=== PATIENT | male | born 1980 | race Caucasian/White ===

== ENCOUNTER 2020-12-17 20:43 | Emergency (ER) | payer BC, SELFPAY ==
[2020-12-17 21:21] VITALS: BP 132/90; PULSE 65; RESP 20; TEMP 36.7; O2SAT 97
--- NOTE | 2020-12-17 23:01 | ED.GENADULT ---
HPI - General Adult General Chief complaint: Skin/Abscess/Foreign Body Stated complaint: fish hook stuck in finger Time Seen by Provider: 12/17/20 22:50 Source: patient History of Present Illness HPI narrative: Patient is a 40 y/o male complaining of fish hook stuck in his right index finger. He states that this happened about 2 hours ago. He has only minimal pain. He denies other injuries. He is not sure when his last Tetanus shot was. Related Data Allergies Allergy/AdvReac Type Severity Reaction Status Date / Time erythromycin base Allergy Intermediate Itching Verified 12/17/20 21:25 Review of Systems Constitutional: Constitutional: Denies chills, Denies fever(s), Denies headache(s) and Denies weakness Eyes: Eyes: Denies blurry vision ENT: Denies headache(s) and Denies neck pain Cardiovascular: Cardiovascular: Denies chest pain and Denies dyspnea Respiratory: Respiratory: Denies cough and Denies dyspnea Gastrointestinal: Gastrointestinal: Denies abdominal pain, Denies diarrhea, Denies nausea and Denies vomiting Genitourinary: Genitourinary: Denies hematuria and Denies dysuria Musculoskeletal: Musculoskeletal: Denies back pain and Denies neck pain Integumentary/Breasts: Skin/Breast: Reports as per HPI and Reports other (fish hook stuck in right index finger) Neurologic: Denies headache(s) and Denies weakness Exam Const: General: no acute distress and well developed Orientation/consciousness: oriented to person, oriented to place, oriented to time and patient oriented x3 Eyes: General: appearance normal, both eyes and all related structures Conjunctivae: conjunctivae normal Skin: General skin exam: normal color and turgor normal Neuro: General: oriented to person, oriented to place, oriented to time and patient oriented x3 Cognition (Neuro): normal cognition Extrem: General: normal to inspection, full ROM and no pedal edema Right upper extremity: Extremity exam: right hand puncture wound (with fishhook stuck in right index finger) Psych: Appearance: grossly normal Mental Status: mental status grossly normal Affect: normal affect Course Vital Signs Vital signs: Vital Signs Temperature 36.7 C 12/17/20 21:21 Pulse Rate 65 12/17/20 21:21 Respiratory Rate 20 12/17/20 21:21 Blood Pressure 132/90 12/17/20 21:21 Pulse Oximetry 97 12/17/20 21:21 Temperature 36.7 C 12/17/20 21:21 Pulse Rate 65 12/17/20 21:21 Respiratory Rate 20 12/17/20 21:21 Blood Pressure 132/90 12/17/20 21:21 Pulse Oximetry 97 12/17/20 21:21 Procedures Foreign Body Removal Foreign Body #1: Foreign Body Removal Date: 12/17/20 Foreign Body Removal Time: 23:38 Time Out Performed: yes Site: right and hand (index finger) Description of foreign body: fish hook Sedation/Analgesia: none and other (digital block with 1% lidocaine is administered prior to removal of fish hook) Technique: incision made to facilitate removal Confirmed by:: direct visualization Complications: none Post-procedure exam: awake, alert Foreign Body Removal Narrative: Skin incision is made with 18 G needle for fish hook removal Medical Decision Making Vital Signs Vital Signs: Vital Signs Temperature 36.7 C 12/17/20 21:21 Pulse Rate 65 12/17/20 21:21 Respiratory Rate 20 12/17/20 21:21 Blood Pressure 132/90 12/17/20 21:21 Pulse Oximetry 97 12/17/20 21:21 Temperature 36.7 C 12/17/20 21:21 Pulse Rate 65 12/17/20 21:21 Respiratory Rate 20 12/17/20 21:21 Blood Pressure 132/90 12/17/20 21:21 Pulse Oximetry 97 12/17/20 21:21 Discharge Plan Discharge Clinical Impression: Puncture wound Fish hook injury of finger of right hand Qualifiers: Encounter type: initial encounter Qualified Code(s): S69.91XA - Unspecified injury of right wrist, hand and finger(s), initial encounter Patient Disposition: Home, Self-Care Condition:
[2020-12-17] MEDS: TETANUS,DIPHTHERIA,AC PERTUSSIS ADULT (0.5 ML) BOOSTRIX IM (23:07)
== END 2020-12-17 23:58 | disposition home or self-care (01) ==
PROVIDERS: Emergency Provider Emergency Medicine; PCP Family Medicine
DX: S61.221A Laceration with foreign body of left index finger without damage to nail, initial encounter (principal); Z23 Encounter for immunization; W45.8XXA Other foreign body or object entering through skin, initial encounter
CPT/HCPCS: 10120; 90471; 90715; 99283

== ENCOUNTER 2021-04-08 07:47 | Outpatient (CLI) | payer BC, SELFPAY ==
--- NOTE | 2021-04-18 13:13 | WPDHOMESLEEP ---
Sleep Study - Home Unattended Date of Study: 04/08/21 <Aria Bay DO - Last Filed: 04/18/21 13:39> Ordering Provider: Oniel Beavers MD <Aria Bay DO - Last Filed: 04/18/21 13:39> Interpreting Provider: Aria Bay DO <Aria Bay DO - Last Filed: 04/18/21 13:39> Home Sleep Study Type: Apnea Link Air <Aria Bay DO - Last Filed: 04/18/21 13:39> Height: 1.75 m <Aria Bay DO - Last Filed: 04/18/21 13:39> Weight: 104.326 kg <Aria Bay DO - Last Filed: 04/18/21 13:39> Body Mass Index: 34.0 <Aria Bay DO - Last Filed: 04/18/21 13:39> Neck Circumference (inches): 16.5 <Aria Bay DO - Last Filed: 04/18/21 13:39> [place]: 9 <Aria Bay DO - Last Filed: 04/18/21 13:39> Reason for Sleep Study Hypersomnia <Aria Bay DO - Last Filed: 04/18/21 13:39> Sleep History The patient is a 40-year-old male with psoriasis, seasonal allergies and obesity that had a home sleep test ordered by his primary care doc for hypersomnia. The patient currently works at [employer]. the patient's states that he snores almost every night for greater than 2 years. The patient denies awakening from sleep short of breath. He denies awakening at night with heartburn, belching or cough. He constantly snores loud enough that others complain. He denies having trouble sleeping when he has a cold. He denies suddenly waking up gasping for air throughout the night. He denies having breathing problems at night observed by others. He denies having heart palpitations throughout the night. He rarely falls asleep during the day and never while driving. He denies sleep paralysis and cataplexy. He rarely experiences vivid dreamlike scenes upon awakening or falling asleep. He denies having nightmares. He never feels sad or depressed. He is rarely anxious. He rarely notices parts of his body jerk. He denies kicking throughout the night. He denies experiencing crawling and aching feelings in his legs as well as leg pain throughout the night. He denies grinding his teeth during sleep and awakening with jaw pain. He denies being bothered by pain during the day and being awakened by pain during the night. He goes to bed at 10:00 p.m. on weekdays and 11:00 p.m. on the weekends. It does not take him long to fall asleep. He wakes up 1-2 times per night. When he wakes up, he will change the baby, urinate, get a drink for himself and make a bottle for the baby. He is able to fall back asleep immediately. He wakes up at 4:00 a.m. on the weekdays and 7:00 a.m. on the weekends. He gets 6 hours of sleep per night. He will stay in bed for 30 minutes after awakening. He currently lives with his and children. He does not consume any caffeinated beverages within 2 hours of going to bed. He does not engage in physical exercise before bedtime. He will watch television before falling asleep. He will rarely take naps but if he does they are not refreshing. He drinks 2 caffeinated beverages per day. He drinks 2 alcoholic beverages per day. He denies tobacco and recreational drug use. <Aria Bay DO - Last Filed: 04/18/21 13:39> [facility] Past Medical History Medical History: Medical History BMI 33.0-33.9,adult Encounter for prostate cancer screening Encounter for wellness examination in adult Hypersomnia Psoriasis Seasonal allergic rhinitis <Aria Bay DO - Last Filed: 04/18/21 13:39> Family History Family History: Family History Father Heart disease Grandparent Cancer Heart disease Grandparent Cancer Heart disease <Aria Bay, DO - Last Filed: 04/18/21 13:39> Social History Social History: Social History (Reviewed 04/18/21 @ 13:18
[2021-04-18 13:21] VITALS: BMI 34.0
== END 2021-04-09 10:34 | disposition home or self-care (01) ==
LOC: ANHCSM 07:50
PROVIDERS: PCP Family Medicine; Visit Provider Family Medicine
DX: G47.10 Hypersomnia, unspecified (principal); G47.33 Obstructive sleep apnea (adult) (pediatric)
CPT/HCPCS: 95806

== ENCOUNTER 2023-03-09 08:01 | Outpatient (CLI) | payer BC, SELFPAY ==
--- NOTE | ~2023-03-09 | US_ITS ---
EXAMINATION: US aorta [facility] DATE: 03/09/2023 08:41 INDICATION: Abdominal aortic aneurysm screening TECHNIQUE: Grayscale, color Doppler, and pulsed Doppler images of the aorta and common iliac arteries were obtained. COMPARISON: None. FINDINGS: The proximal aorta measures 2.5 cm. The mid aorta measures 2.4 cm. The distal aorta measures 1.6 cm. The right common iliac artery measures 1.2 cm. The left common iliac artery measures 1.2 cm. IMPRESSION: 1. Normal caliber abdominal aorta. Reviewed, dictated and finalized at location A.
== END 2023-03-09 08:02 | disposition home or self-care (01) ==
PROVIDERS: PCP Family Medicine; Visit Provider Family Medicine
DX: Z13.6 Encounter for screening for cardiovascular disorders (principal); Z82.49 Family history of ischemic heart disease and other diseases of the circulatory system
CPT/HCPCS: 76706

== ENCOUNTER 2024-12-27 10:35 | Outpatient (CLI) | payer BC, SELFPAY ==
--- NOTE | 2024-12-27 10:37 | EST_ITS ---
Patient Info Name: Patel Brooks Age: 44 years : 1980 Gender: Male Ht: 69 in Wt: 230 lbs BSA: 2.29 m2 HR: 70 bpm BP: 117 / 77 mmHg Exam Date: 12/27/2024 10:37 AM Patient Status: O Admit Date: 12/27/2024 Exam Type: CA stress test treadmill A treadmill exercise stress test was performed. Staff Referring Physician: Danay Norman Attending Provider: Danay Norman Exercise Technologist: Rosario Mendes Exercise Physician: Chad Zapata DO Summary 1. 1. Negative Frandy exercise stress test for ischemic ST changes by ECG criteria. 2. 2. Good functional capacity, achieving 12 METs of workload. 3. 3. Appropriate HR response to exercise. 4. 4. Appropriate HR recovery at 1 minute post exercise. 5. 5. No imaging with stress testing. 6. 6. Patient informed of the above results. Protocol: Frandy Stress ECG Details Stage: REST Duration (min): 0 min : 50 sec Speed (mph): 0.0 Grade (%): 0 HR (bpm): 70 SBP (mmHg): 117 DBP (mmHg): 77 METS: --- Stage: REST Duration (min): 7 min : 6 sec Speed (mph): 0.0 Grade (%): 0 HR (bpm): 76 SBP (mmHg): 117 DBP (mmHg): 77 METS: --- Stage: STAGE 1 Duration (min): 1 min : 0 sec Speed (mph): 1.7 Grade (%): 10 HR (bpm): 108 SBP (mmHg): 117 DBP (mmHg): 77 METS: --- Stage: STAGE 1 Duration (min): 2 min : 0 sec Speed (mph): 1.7 Grade (%): 10 HR (bpm): 112 SBP (mmHg): 117 DBP (mmHg): 77 METS: --- Stage: STAGE 1 Duration (min): 3 min : 0 sec Speed (mph): 1.7 Grade (%): 10 HR (bpm): 113 SBP (mmHg): 150 DBP (mmHg): 82 METS: --- Stage: STAGE 2 Duration (min): 1 min : 0 sec Speed (mph): 2.5 Grade (%): 12 HR (bpm): 120 SBP (mmHg): 150 DBP (mmHg): 82 METS: --- Stage: STAGE 2 Duration (min): 2 min : 0 sec Speed (mph): 2.5 Grade (%): 12 HR (bpm): 126 SBP (mmHg): 158 DBP (mmHg): 81 METS: --- Stage: STAGE 2 Duration (min): 3 min : 0 sec Speed (mph): 2.5 Grade (%): 12 HR (bpm): 126 SBP (mmHg): 158 DBP (mmHg): 81 METS: --- Stage: STAGE 3 Duration (min): 1 min : 0 sec Speed (mph): 3.4 Grade (%): 14 HR (bpm): 136 SBP (mmHg): 190 DBP (mmHg): 80 METS: --- Stage: STAGE 3 Duration (min): 2 min : 0 sec Speed (mph): 3.4 Grade (%): 14 HR (bpm): 140 SBP (mmHg): 190 DBP (mmHg): 80 METS: --- Stage: STAGE 3 Duration (min): 3 min : 0 sec Speed (mph): 3.4 Grade (%): 14 HR (bpm): 144 SBP (mmHg): 178 DBP (mmHg): 87 METS: --- Stage: STAGE 4 Duration (min): 1 min : 0 sec Speed (mph): 4.2 Grade (%): 16 HR (bpm): 156 SBP (mmHg): 178 DBP (mmHg): 87 METS: --- Stage: STAGE 4 Duration (min): 1 min : 0 sec Speed (mph): 4.2 Grade (%): 16 HR (bpm): 156 SBP (mmHg): 178 DBP (mmHg): 87 METS: --- Stage: RECOVERY Duration (min): 0 min : 59 sec Speed (mph): 0.0 Grade (%): 0 HR (bpm): 131 SBP (mmHg): 155 DBP (mmHg): 67 METS: --- Stage: RECOVERY Duration (min): 1 min : 59 sec Speed (mph): 0.0 Grade (%): 0 HR (bpm): 115 SBP (mmHg): 155 DBP (mmHg): 67 METS: --- Stage: RECOVERY Duration (min): 2 min : 59 sec Speed (mph): 0.0 Grade (%): 0 HR (bpm): 111 SBP (mmHg): 162 DBP (mmHg): 77 METS: --- Stage: RECOVERY Duration (min): 3 min : 59 sec Speed (mph): 0.0 Grade (%): 0 HR (bpm): 106 SBP (mmHg): 162 DBP (mmHg): 77 METS: --- Stage: RECOVERY Duration (min): 4 min : 59 sec Speed (mph): 0.0 Grade (%): 0 HR (bpm): 105 SBP (mmHg): 136 DBP (mmHg): 78 METS: --- Stage: RECOVERY Duration (min): 5 min : 59 sec Speed (mph): 0.0 Grade (%): 0 HR (bpm): 106 SBP (mmHg): 136 DBP (mmHg): 78 METS: --- Stage: RECOVERY Duration (min): 6 min : 59 sec Speed (mph): 0.0 Grade (%): 0 HR (bpm): 100 SBP (mmHg): 130 DBP (mmHg): 82 METS: --- Stage: RECOVERY Duration (min): 7 min : 7 sec Speed (mph): 0.0 Grade (%): 0 HR (bpm): 100 SBP (mmHg): 130 DBP (mmHg): 82 METS: --- Rest HR: 76 bpm Peak HR: 158 bpm Rest Sys BP: 117 mmHg Peak Sys BP: 190 mmHg Max Pred HR: 176 bpm % Max Pred HR: 90 % Target HR: 150 bpm Max RPP: 30,020 bpm*mmHg Alarcon Score: 4 Termination Reason: Reached target heart rate or workload Cardiac Symptoms: Shortness of breath Max ST Seg Deviation: 1.20 mm Total Time: 10 min : 0 sec Rest Guajardo BP: 77 mmHg Peak Guajardo BP: 80 mmHg Angina Score: None Total METS: 12.1 Resting ECG Sinus rhythm. Stress ECG No ST changes. Arrhythmias None. Report Signatures
--- OUTSIDE RECORDS SUMMARY | 2024-12-27 10:42 | XMS_ITS | Clinical Summary ---
Author Organization [facility] [address] Address [address] [place] [address] Care Team Providers Care Jig Hand Name Role Phone Oniel Beavers MD Primary Care Provider [phone] [phone] Allergies Active Allergy Reactions Criticality Noted Date Comments Erythromycin Hives Medium 05/16/2023 Medications methylPREDNISolon e (Medrol, Bowen,) 4 mg DosepackIndicatio ns:Dermatitis follow package directions 1 packet 3 Active triamcinolone (KENALOG) 0.1 % creamIndications: Skin Inflammation Apply topically 2 (two) times a day Not to face or genitals 30 g 3 Active Active Problems No known active problems Encounters Date Type Department Care Team Description 12/05/2024 12:38 AM CDT - 12/05/2024 3:57 AM CDT Emergency [facility] Emergency Department [address] [place] [address] Carmencita Trevizo MD Chest pain, unspecified type (Primary Dx) Discharge Disposition: Discharge to home or self care 12/04/2024 11:41 PM CDT - 12/04/2024 11:46 PM CDT Emergency [facility] Emergency Department [address] [place] [address] Discharge Disposition: Left without being seen from Last 3 Months Social History Tobacco Use Types Packs/Day Years Used Date Smoking Tobacco: Never Smokeless Tobacco: Never Tobacco Cessation:Counseling Given: Not Answered Alcohol Use Standard Drinks/Week Comments Yes 0 (1 standard drink = 0.6 oz pur e alcohol) on weekends Personal Safety Answer Date Recorded Have you ever been in or are you currently in a harmful physical or emotional relationship or is someone making you feel afraid or unsafe? 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 Gender Identity Not on file Sexual Orientation Not on file Obstetrics History Last Filed Vital Signs Vital Sign Reading Time Taken Comments Blood Pressure 143/95 12/04/2024 10:37 PM CDT Pulse 58 12/04/2024 10:37 PM CDT Temperature 37.1 C (98.8 F) 12/04/2024 7:39 PM CDT Respiratory Rate 17 12/04/2024 10:37 PM CDT Oxygen Saturation 96% 12/04/2024 10:37 PM CDT Inhaled Oxygen Concentration - - Weight 104.3 kg (230 lb) 12/04/2024 7:39 PM CDT Height 175.3 cm (5' 9) 12/04/2024 7:39 PM CDT Body Mass Index 33.97 12/04/2024 7:39 PM CDT Plan of Treatment Health Maintenance Due Date Last Done Comments Depression Screening 1980 Hepatitis C Screening 1980 Varicella Vaccines (1 of 2 - 13+ 2-dose series) 1993 Hepatitis B Screening 1998 Regular Well Visit/Exam 18-64 1998 Covid-19 Vaccine (3 - 2023-2 5 season) 2024 04/26/2021, 04/05/2021 Influenza Vaccine (Season Ended) 2025 DTaP/Tdap/Td Vaccine (2 - Td or Tdap) 12/17/2030 12/17/2020, 01/08/1995 HPV Vaccines Aged Out No longer eligi ble based on patient's age to complete this topic Pneumococcal vaccine <65 Aged Out No longer eligible based on patient's age to complete this topic Procedures Procedure Name Priority Date/Time Associated Diagnosis Comments XR CHEST PA LATERAL 2 VIEWS ED 12/05/2024 1:46 AM CDT EGFR STAT 12/05/2024 1:30 AM CDT DIFFERENTIAL AUTO STAT 12/05/2024 1:3 0 AM CDT D-DIMER, QUANTITATIVE STAT 12/05/2024 1:30 AM CDT TROPONIN I HIGH-SENSITIVITY SERIES (BASELINE, 2HR, 4HR, 6HR) STAT 12/05/2024 1:30 AM CDT COMPREHENSIVE METABOLIC PANEL STAT 12/05/2024 1:30 AM CDT CBC WITH AUTO DIFFERENTIAL STAT 12/05/2024 1:30 AM CDT ECG 12-LEAD Routine 12/04/2024 8:45 PM CDT XR SHOULDER LEFT 2 OR MORE VIEWS ED 12/04/2024 4:54 PM CDT ECG 12-LEAD STAT 12/04/2024 4:07 PM CDT from Last 3 Months Results * XR Chest Pa Lateral 2 Vw (12/05/2024 1:46 AM CDT) Anatomical Region Laterality Modality Body, Chest N/A Computed Radiogr aphy 12/05/2024 3:08 AM CDT Impressions 12/05/2024 9:55 AM CDT No priors available for comparison. Small lung volumes with mild bibasilar atelectasis. Right lateral pleural thickening. No pleural effusion or pneumothorax. Cardiomediastinal silhouette is normal. Dictated by: Aron Harley MD The radiology attending physician has personally reviewed this study, and had reviewed and/or edited this written report and agrees with it. Electronically signed by: Bety Cai M.D. Narrative 12/05/2024 9:55 AM CDT EXAMINATION: 2 view chest radiograph Procedure Note Bety Cai MD - 12/05/2024 EXAMINATION: 2 view chest radiograph IMPRESSION: No priors available for comparison. Small lung volumes with mild bibasilar atelectasis. Right lateral pleural thickening. No pleural effusion or pneumothorax. Cardiomediastinal silhouette is normal. Dictated by: Aron Harley MD The radiology attending physician has personally reviewed this study, and had reviewed and/or edited this written report and agrees with it. Electronically signed by: Bety Cai M.D. us Beulah Shaniquesana Perez DO IMG XR PROCEDURES F inal Result * Troponin I high-sensitivity series (baseline, 2hr, 4hr, 6hr) (12/05/2024 1:30 AM CDT) Trop I hs <4 <=35 ng/L Comment: Interpretive Data For further hscTnI resources including the diagnostic algorithm and an aid in interpretation, copy and paste this link: [email or web address]/show/[email or web address] Current Interpretive Data last revised 2020. Blood 12/05/2024 1:30 AM CDT 12/05/2024 1:41 AM CDT us Mariza Mojica MD LAB BLOOD ORDERABLES Final Result [facility] One [facility] Department of [place] [address] * eGFR (12/05/2024 1:30 AM CDT) eGFR 76 >=60 mL/min/1. 73 m2 Comment: Interpretive Data Reference Interval Normal >/= 90 mL/min/1.73m2 Mildly decreased* 60 - 89 mL/min/1.73m2 Mildly to moderately decreased 45 - 59 mL/min/1.73m2 Moderately to severely decreased 30 - 44 mL/min/1.73m2 Severely decreased 15 - 29 mL/min/1.73m2 Kidney Failure < 15 mL/min/1.73m2 *Relative to young adult level Estimated glomerular filtration rate is determined by the 2020 CKD-EPI equation recommended by the National Kidney Foundation (A Unifying Approach to GFR Estimation: Recommendations of the NKF-ASK Task Force on Reassessing the Inclusion of Race in Diagnosing Kidney Disease, JASN 2020). The CKD-EPI equation should not be used for patients with unstable renal function and has not been validated in children and those over 70. Current interpretive data was last reviewed 2021. Blood 12/05/2024 1:30 AM CDT 12/05/2024 1:41 AM CDT us Mariza Mojica MD LAB BLOOD ORDERABLES Final Result [facility] One [facility] Department of [place] [address] * (ABNORMAL) Differential, auto (12/05/2024 1:30 AM CDT) Pathologist [facility] Neutrophil abs 3.04 1.50 - 6.50 K/cumm Imm gran abs 0.02 0.00 - 0.10 K/cumm [facility] Lymphocyte abs 3.24 0.80 - 3.30 K/cumm [facility] Monocyte abs 0.81(H) 0.20 - 0.80 K/cumm [facility] Eosinophil abs 0.14 0.00 - 0.50 K/cumm [facility] Basophil abs 0.04 0.00 - 0.10 K/cumm [facility] Neutrophil pct 41.8 % [facility] Comment: Interpretive Data Percent cell count reference ranges are not reported, since discordance with absolute values may lead to misinterpretation of CBC data. Current Interpretive Data was last revised on 2017. Imm gran pct 0.3 % [facility] Comment: Interpretive Data Percent cell count reference ranges are not reported, since discordance with absolute values may lead to misinterpretation of CBC data. Current Interpretive Data was last revised on 2017. Lymphocyte pct 44.4 % [facility] Comment: Interpretive Data Percent cell count reference ranges are not reported, since discordance with absolute values may lead to misinterpretation of CBC data. Current Interpretive Data was last revised on 2017. Monocyte pct 11.1 % [facility] Comment: Interpretive Data Percent cell count reference ranges are not reported, since discordance with absolute values may lead to misinterpretation of CBC data. Current Interpretive Data was last revised on 2017. Eosinophil pct 1.9 % [facility] Comment: Interpretive Data Percent cell count reference ranges are not reported, since discordance with absolute values may lead to misinterpretation of CBC data. Current Interpretive Data was last revised on 2017. Basophil pct 0.5 % [facility] Comment: Interpretive Data Percent cell count reference ranges are not reported, since discordance with absolute values may lead to misinterpretation of CBC data. Current Interpretive Data was last revised on 2017. Blood 12/05/2024 1:30 AM CDT 12/05/2024 1:41 AM CDT us Mariza Mojica MD LAB BLOOD ORDERABLES Final Result [facility] Department of [place] [address] * (ABNORMAL) CBC with auto differential (12/05/2024 1:30 AM CDT) WBC 7.29 3.80 - 9.90 K/cumm Hgb 17.5 13.0 - 17.5 g/dL [facility] Hct 50.1 38.9 - 50.3 % [facility] Plt 246 150 - 400 K/cumm [facility] MPV 10.0 9.1 - 12.3 fL [facility] RBC 6.10(H) 4.30 - 5.80 M/cumm [facility] MCV 82.1 81.3 - 96.4 fL [facility] MCH 28.7 27.1 - 33.3 pg [facility] MCHC 34.9 32.3 - 35.7 g/dL [facility] RDW CV 12.4 11.1 - 14.9 % [facility] RDW SD 37.2 35.7 - 48.1 fL [facility] NRBC abs 0.00 0.00 - 0.01 K/cumm [facility] Blood 12/05/2024 1:30 AM CDT 12/05/2024 1:41 AM CDT Mariza Mojica MD LAB BLOOD ORDERABLES Final Result Performing Organization Address [facility] Co de Phone Number [facility] Department [place] [address] * D-dimer, quantitative (12/05/2024 1:30 AM CDT) D-Dimer <215 <=499 ng/mL FEU Comment: No clot detected in sample - [id number] - 12/05/24, 2:35 AM Interpretive data FDA approved the D-dimer, in conjunction with a low or moderate pretest probability score, to exclude venous thromboembolic events (VTE) (PE and DVT) in outpatients when the D-dimer result is < 500 ng/ml FEU. Evidence supports using an age-adjusted D-dimer cut-off for outpatients older than 50 (age x 10) to improve specificity without sacrificing sensitivity. Example: age 68, VTE cut-off 680 ng/ml FEU. References; Schangelica HT et al. Brit Med J. 2013;346:f2492. Mono et al. Annals Int Med. 2015;163:701-11. Current interpretive data was last revised on 2019. Blood 12/05/2024 1:30 AM CDT 12/05/2024 2:11 AM CDT Beulah Perez DO LAB BLOOD ORDERABLE S Final Result Performing Organization Address [facility] Co de Phone Number [facility] Department [place] [address] * Comprehensive metabolic panel (12/05/2024 1:30 AM CDT) Pathologist [facility] Sodium 141 135 - 145 mmol/L Potassium, pl 4.3 3.3 - 4.9 mmol/L [facility] Comment:Hemolyzed; Potassium value may be falsely elevated by as much as 0.3-0.5 mmol/L. Suggest redraw and reanalysis. Chloride 103 97 - 110 mmol/L [facility] CO2 28 22 - 32 mmol/L [facility] Anion gap 10 2 - 15 mmol/L [facility] BUN 15 6 - 25 mg/dL [facility] Creatinine 1.20 0.80 - 1.30 mg/dL [facility] Glucose 98 70 - 199 mg/dL [facility] Comment: Interpretive Data Fasting glucose >/= 126 mg/dl is diagnostic for diabetes. Fasting is defined as no caloric intake for at least 8 hours. Fasting glucose between 100 mg/dl to 125 mg/dl is diagnostic of prediabetes. In a patient with classic symptoms of hyperglycemia or hyperglycemic crisis, a random glucose >/= 200 mg/dl is diagnostic for diabetes. In the absence of unequivocal hyperglycemia, results should be confirmed by repeat testing. The classification and Diagnosis of Diabetes Diabetes Care 202; 46: S19-S40. Current interpretive data was last revised 2022. Calcium 9.3 8.5 - 10.3 mg/dL [facility] Bilirubin, total 0.6 0.1 - 1.2 mg/dL [facility] Protein, pl 8.1 6.5 - 8.5 g/dL [facility] Albumin 4.9 3.5 - 5.0 g/dL [facility] Alk phos 88 40 - 130 Units/L [facility] ALT 35 7 - 55 Units/L [facility] AST 40 10 - 50 Units/L [facility] Comment:Hemolyzed; result ma y be falsely elevated Blood 12/05/2024 1:30 AM CDT 12/05/2024 1:41 AM CDT us Mariza Mojica MD LAB BLOOD ORDERABLES Final Result [facility] One [facility] Department of [place] [address] * ECG 12 lead (12/04/2024 8:45 PM CDT) Narrative [facility] - 12/04/2024 8:45 PM CDT Madie Mahmood MD 12/05/2024 12:00 AM ECG 12 lead Date/Time: 12/04/2024 8:45 PM Performed by: Madie Mahmood MD Authorized by: Bharathi Pradhan MD Rate: ECG rate: 65 ECG rate assessment: normal Rhythm: Rhythm: sinus rhythm Ectopy: Ectopy: none QRS: QRS axis: Normal QRS intervals: Normal Conduction: Conduction: normal ST segments: ST segments: Normal T waves: T waves: normal Previous ECG: Previous ECG: Unavailable Interpretation: Interpretation: No acute injury pattern Recommended Follow-up: Recommended follow up: further workup in the ED Comments: ECG obtained for chest pain us Carmencita Trevizo MD ECG ORDERABLES Final Re sult [facility] * XR Shoulder Left 2 or More Views (12/04/2024 4:54 PM CDT) Anatomical Region Laterality Modality Upper Extremities, Shoulder Left Comp uted Radiography 12/04/2024 9:53 PM CDT Impressions 12/04/2024 9:53 PM CDT No fracture or dislocation seen. Electronically signed by: Alize Gómez M.D. Narrative 12/04/2024 9:53 PM CDT EXAMINATION: XR SHOULDER LEFT 2 OR MORE VIEWS HISTORY: The patient is a 44-year-old male who presents with left shoulder pain. TECHNIQUE: 4 views. FINDINGS: No fracture or dislocation is seen. The glenohumeral and acromioclavicular joints are normal. Procedure Note Alize Gómez MD - 12/04/2024 EXAMINATION: XR SHOULDER LEFT 2 OR MORE VIEWS HISTORY: The patient is a 44-year-old male who presents with left shoulder pain. TECHNIQUE: 4 views. FINDINGS: No fracture or dislocation is seen. The glenohumeral and acromioclavicular joints are normal. IMPRESSION: No fracture or dislocation seen. Electronically signed by: Alize Gómez M.D. us Mae SCHILLING IMG XR PROCEDURES Final Resul t * ECG 12 lead (12/04/2024 4:07 PM CDT) 12/04/2024 4:07 PM CDT Narrative [facility] - 12/07/2024 7:59 AM CDT Vent Rate: 69 bpm RR Interval: 868 msec [place] Interval: 149 msec QRS Duration: 106 msec QT Interval: 376 msec QTC Interval: 394 msec P-R-T [place]: 16 - 7 - 30 degrees IMPRESSION: SINUS RHYTHM INCOMPLETE RIGHT BUNDLE BRANCH BLOCK [90+ ms QRS DURATION, TERMINAL R IN V1/V2, 40+ ms S IN I/aVL/V4/V5/V6] BORDERLINE ECG Electronically Signed By: Siddharth Donaldson MD us Mae SCHILLING ECG ORDERABLES Final Result [facility] from Last 3 Months Insurance [employer] [place] [employer] [place] Care Teams Jig Hand Relationship Specialty Start Date End Date Oniel Beavers MD [address] [address] PCP - General Family Medicine 12/05/24
--- OUTSIDE RECORDS SUMMARY | 2024-12-27 10:42 | XMS_ITS | Referral Summary ---
Author Organization [facility] [address] Address [address] [place] [address] Care Team Providers Care Veterinary Toxicologist Name Role Phone Oniel Beavers MD Primary Care Provider [phone] Encounters Date Type Department Care Team Description 12/05/2024 12:38 AM CDT - 12/05/2024 3:57 AM CDT Emergency [facility] Emergency Department [address] [place] [address] Carmencita Trevizo MD Chest pain, unspecified type (Primary Dx) Discharge Disposition: Discharge to home or self care 12/04/2024 11:41 PM CDT - 12/04/2024 11:46 PM CDT Emergency [facility] Emergency Department [address] [place] [address] Discharge Disposition: Left without being seen from Last 3 Months Allergies Active Allergy Reactions Criticality Noted Date Comments Erythromycin Hives Medium 05/16/2023 Medications methylPREDNISolon e (Medrol, Bowen,) 4 mg DosepackIndicatio ns:Dermatitis follow package directions 1 packet 3 Active triamcinolone (KENALOG) 0.1 % creamIndications: Skin Inflammation Apply topically 2 (two) times a day Not to face or genitals 30 g 3 Active Active Problems No known active problems Social History Tobacco Use Types Packs/Day Years [...] on file 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 Electronically signed by: Bety Cai M.D. Beulah Perez DO IMG XR PROCEDURES F inal Result * Troponin I high-sensitivity series (baseline, 2hr, 4hr, 6hr) (12/05/2024 1:30 AM CDT) Trop I hs <4 <=35 ng/L Comment: Interpretive Data For further [facility] resources including the diagnostic algorithm and an aid in interpretation, copy and paste this link: [email or web address]/[email or web address] Current Interpretive Data last revised 2020. Blood 12/05/2024 1:30 AM CDT 12/05/2024 1:41 AM CDT Mariza Mojica MD LAB BLOOD ORDERABLES Final Result Performing Organization Address [facility] Co de Phone Number MEAGAN [facility] [place] [address] * eGFR (12/05/2024 1:30 AM CDT) eGFR [...] of Race in Diagnosing Kidney Disease, JASN 202). The CKD-EPI equation should not be used for patients with unstable renal function and has not been validated in children and those over 70. Current interpretive data was last reviewed 2021. Blood 12/05/2024 1:30 AM CDT 12/05/2024 1:41 AM CDT Mariza Mojica MD LAB BLOOD ORDERABLES Final Result Performing Organization Address [facility]/ZIP Co de Phone Number [facility] Department [place] [address] * (ABNORMAL) Differential, auto (12/05/2024 1:30 AM CDT) Neutrophil abs 3.04 1.50 - 6.50 K/cumm [...] BLOOD ORDERABLES Final Result Performing Organization Address [facility] Co de Phone Number [facility] Department [place] [address] * (ABNORMAL) CBC with auto differential (12/05/2024 1:30 AM CDT) [facility] WBC 7.29 3.80 - 9.90 K/cumm Hgb [...] BLOOD ORDERABLES Final Result Performing Organization Address [facility] Co de Phone Number [facility] Department [place] [address] * D-dimer, quantitative (12/05/2024 1:30 AM CDT) [facility] D-Dimer <215 <=499 ng/mL FEU Comment: No clot detected in sample - [id number] - 12/05/24, 2:35 AM Interpretive data FDA [...] 68, VTE cut-off 680 ng/ml FEU. References; Tony MAHONEY et al. Brit Med J. 2013;346:f2492. Mono et al. Annals Int Med. 2015;163:701-11. Current interpretive data was last revised on 2019. Blood 12/05/2024 1:30 AM CDT 12/05/2024 2:11 AM CDT Beulah Perez DO LAB BLOOD ORDERABLE S Final Result [facility] One [facility] Department [place] [address] * Comprehensive metabolic panel (12/05/2024 1:30 AM CDT) Sodium 141 135 - 145 mmol/L Potassium, [...] classification and Diagnosis of Diabetes Diabetes Care 2021; 46: S19-S40. Current interpretive data was last revised 2022. Calcium 9.3 8.5 - 10.3 mg/dL [facility] Bilirubin, total 0.6 0.1 - 1.2 mg/dL [facility] Protein, pl 8.1 6.5 - 8.5 g/dL [facility] Albumin 4.9 3.5 - 5.0 g/dL [facility] Alk phos 88 40 - 130 Units/L [facility] ALT 35 7 - 55 Units/L [facility] AST 40 10 - 50 Units/L [facility] Comment:Hemolyzed; result ma y be falsely elevated Blood 12/05/2024 1:30 AM CDT 12/05/2024 1:41 AM CDT us Mariza Mojica MD LAB BLOOD ORDERABLES Final Result Performing Organization Address [facility] de Phone Number [facility] Department [place] [address] * ECG 12 lead (12/04/2024 8:45 PM CDT) Narrative [facility] - 12/04/2024 8:45 PM CDT [...] Trevizo MD ECG ORDERABLES Final Re sult Performing Organization Address [facility]/ZIP Co de Phone Number [facility] * XR Shoulder Left 2 or More [...] seen. Electronically signed by: Alize Gómez M.D. Mae SCHILLING IMG XR PROCEDURES Final Resul t * ECG 12 lead (12/04/2024 4:07 PM CDT) 12/04/2024 4:07 PM CDT Narrative [facility] - 12/07/2024 7:59 AM CDT Vent Rate: 69 bpm RR Interval: 868 msec MS Interval: 149 msec QRS Duration: 106 msec QT Interval: 376 msec QTC Interval: 394 msec P-R-T [place]: 16 - 7 - 30 degrees IMPRESSION: SINUS RHYTHM INCOMPLETE RIGHT BUNDLE BRANCH BLOCK [90+ ms QRS DURATION, TERMINAL R IN V1/V2, 40+ ms S IN I/aVL/V4/V5/V6] BORDERLINE ECG Electronically Signed By: Siddharth Donaldson MD us Mae SCHILLING ECG ORDERABLES Final Result [facility] from Last 3 Months [place] Care Teams Veterinary Toxicologist Relationship Specialty Start Date End Date Oniel Beavers MD [address] [address] PCP - General Family Medicine 12/05/24
--- OUTSIDE RECORDS SUMMARY | 2024-12-27 10:42 | XMS_ITS | Continuity of Care Document ---
Author Organization [facility] Address [address] [place] [address] Phone Care Team Providers Care Microfilm Mounter Name Role Phone Mary, Jared Unavailable Unavailable Advance Directives Directive Yes / No Effective Date File Name No Information Encounters Encounter Description Practice Location Reason(s) For Visit Diagnoses Date Provider Providers Copied on Encounter Formerly [facility], [address], [place], [place], [id number], [place] tel:[phone] [facility] No Information Shemar-0 1-[address] Doisy Edward. [address] , [address], [place], [address], [place]. tel:[phone] Family History Family Member Type Diagnosis Age At Onset No Information Payers Payer name Insurance type Covered republican ID Authoriza timaryann(s) [facility] CI [id number] Social History Type Description Quantity Date Captured Comments Sex Male Smoking Status No Information Chief Complaint And Reason For Visit No Information Reason For Referral Reason For Referral No Information History Of Present Illness Encounter Date Complaint History Of Prese nt Illness No Information Functional Status Date Functional Assessmen t No Information Instructions Date Instruction Additional Infor mation No Information Assessments Type Assessment Date No Information Patient Care Teams Name Effective Dates (start - stop) Status Members No Information
--- OUTSIDE RECORDS SUMMARY | 2024-12-27 10:42 | XMS_ITS | Clinical Summary ---
Author Organization [facility] Address [address] [place] [address] Care Team Providers Care Metal Numerical Tool Programmer Name Role Phone Unavailable Primary Care Provider Unavailabl e Source Comments [facility],non-owned Affiliates and Associated Physician Practices is amultiple site organization consisting of ambulatory clinics and hospital sitesin [place], [place], [place] and [place]. This disclosure is being madepursuant to the Care Everywhere program and may not contain all information available regarding this patient. Last updated [email or web address] [email or web address] Allergies Active Allergy Reactions Criticality Noted Date Comments Erythromycin Urticaria Medium 09/02/2019 Medications * Be aware that medications may not be up to date on this document. Alwaysverify current medications with the patient. No known medications Social History Tobacco Use Types Packs/Day Years Used Date Smoking Tobacco: Never Smokeless Tobacco: Never Sex and Gender Information Value Date Recorded Sex Assigned at Not on file Legal Sex Male 8:55 AM CDT Gender Identity Not on file Sexual Orientation Not on file Last Filed Vital Signs Vital Sign Reading Time Taken Comments Blood Pressure 122/80 09/02/2019 5:38 PM CDT Pulse 80 09/02/2019 5:38 PM CDT Temperature 36.8 C (98.3 F) 09/02/2019 5:38 PM CDT Respiratory Rate 14 09/02/2019 5:38 PM CDT Oxygen Saturation - - Inhaled Oxygen Concentration - - Weight - - Height - - Body Mass Index - - Plan of Treatment Health Maintenance Due Date Last Done Comments LIPID TESTING 1980 HIV SCREENING 1995 HEPATITIS C SCREENING 07/24/1998 DTAP/TDAP/TD VACCINES (1 - Tdap) 1999 HEPATITIS B VACCINE (1 of 3 - 19+ 3-dose series) 1999 COVID-19 VACCINE (2023-2 5 season) 2024 DEPRESSION SCREENING 06/22/2024 INFLUENZA VACCINE (#1) 2025 ZOSTER VACCINE (1 of 2) 2030 HIB VACCINE Aged Out No longer eligi ble based on patient's age to complete this topic HPV VACCINE Aged Out No longer eligi ble based on patient's age to complete this topic MENINGOCOCCAL (Group B) VACC INE SHARED DECISION-MAKING Aged Out No longer eligibl e based on patient's age to complete this topic MENINGOCOCCAL GROUPS A/C/Y/W VACCINE Aged Out No longer eligible b ased on patient's age to complete this topic PNEUMOCOCCAL VACCINE Aged Out No long er eligible based on patient's age to complete this topic
== END 2024-12-27 10:36 | disposition home or self-care (01) ==
LOC: ANHCARD 10:36
PROVIDERS: PCP Family Medicine; Visit Provider Nurse Practitioner Family
DX: R07.9 Chest pain, unspecified (principal); I10 Essential (primary) hypertension; E78.2 Mixed hyperlipidemia
CPT/HCPCS: 93017